=== PATIENT | female | born 1995 | race Two or more races ===

== ENCOUNTER 2016-12-11 11:46 | Emergency (ER) | payer OTHER ==
[~2016-12-11] VITALS: Ht 165.1 cm; Wt 53.0 kg
[2016-12-11 11:53] VITALS: BP 115/79
== END 2016-12-11 12:34 | disposition home or self-care (01) ==
LOC: ED 12:30
DX: L02.211 Cutaneous abscess of abdominal wall (principal); L02.416 Cutaneous abscess of left lower limb
CPT/HCPCS: 99283

== ENCOUNTER 2016-12-21 21:37 | Emergency (ER) | payer OTHER ==
[~2016-12-21] VITALS: Ht 165.1 cm; Wt 54.9 kg
[2016-12-21 21:38] VITALS: BP 121/69
[2016-12-21] MEDS ORDERED: DIPHENHYDRAMINE 25 MG CAPSULE PO ONE (22:30)
[2016-12-21] MEDS ORDERED: DIPHENHYDRAMINE 25 MG CAPSULE ONE (22:49)
== END 2016-12-21 23:29 | disposition home or self-care (01) ==
LOC: ED 23:23
DX: T78.3XXA Angioneurotic edema, initial encounter (principal)
CPT/HCPCS: 99283; J7512; Q0163

== ENCOUNTER 2016-12-22 20:32 | Emergency (ER) | payer OTHER ==
[~2016-12-22] VITALS: Ht 165.1 cm; Wt 55.2 kg
[2016-12-22 20:36] VITALS: BP 115/70
[2016-12-22] MEDS ORDERED: DEXAMETHASONE 4 MG/ML, 1ML ONE (20:50)
[2016-12-22] MEDS ORDERED: DIPHENHYDRAMINE 50 MG/ML, 1ML ONE (20:50)
[2016-12-22] MEDS ORDERED: FAMOTIDINE 20 MG TABLET ONE (20:51)
[2016-12-22] MEDS ORDERED: DEXAMETHASONE 4 MG TABLET ONE ×2 (20:51→20:54)
[2016-12-22] MEDS ORDERED: DEXAMETHASONE 4 MG TABLET PO ONE (21:00)
[2016-12-22] MEDS ORDERED: FAMOTIDINE 20 MG TABLET PO ONE (21:00)
[2016-12-22] MEDS ORDERED: DIPHENHYDRAMINE 50 MG/ML, 1ML IM ONE (21:00)
== END 2016-12-22 21:45 | disposition home or self-care (01) ==
LOC: ED 21:35
DX: T78.3XXA Angioneurotic edema, initial encounter (principal)
CPT/HCPCS: 96372; 99283; J1200